=== PATIENT | male | born 1975 | race Caucasian/White ===

== ENCOUNTER → 2024-01-17 | Outpatient (CLI) | payer OTHER ==
[2024-01-17 15:32] LABS: ALBUMIN 4.6 g/dL (3.5-5.0)
[2024-01-17 15:34] LABS: TOTAL PROTEIN 8.3 g/dL (6.4-8.3)
[2024-01-17 15:36] LABS: TOTAL BILIRUBIN 1.6 mg/dL (0.2-1.2)
== END ==
LOC: LAB 15:13
PROVIDERS: Family Medicine
DX: E11.9 Type 2 diabetes mellitus without complications (principal); E78.2 Mixed hyperlipidemia; E55.9 Vitamin D deficiency, unspecified